=== PATIENT | male | born 2000 | race Asian ===

== ENCOUNTER 2019-03-17 08:44 | Emergency (ER) | payer OTHER ==
[2019-03-17 08:49] VITALS: BP 142/92
--- NOTE | 2019-03-17 08:58 | EDPHY ---
H & P Time Seen by Provider: 03/17/19 08:48 HPI/ROS: HPI Mandibular dislocation. 18-year-old male by private vehicle. He was sent from the [facility]. He yawned this morning and dislocated his right temporal mandibular joint. He has done this in the past. He is usually able to self reduce this dislocation. He was unable to self reduce it. He was seen at the [facility] and they referred him here for treatment. He denies any other injury or complaint. No difficulty breathing. He has been able to swallow his secretions without issue as well. ROS: Constitutional: No fever, no chills. No weakness. ENT: As above. Musculoskeletal: No neck pain. As above. Neurological: No headache. No focal weakness or altered sensation. Past medical history: As above. Otherwise healthy. Social history: Student [employer]. No alcohol. Nonsmoker. Physical Exam: General Appearance: Alert, no distress. This patient is responding to questions appropriately and in full sentences. This patient appears well- hydrated and well-nourished. Eyes: Pupils equal and round no pallor or injection. No lid edema, erythema or injection. ENT, Mouth: Mucous membranes are moist. The pharyngeal tissues are unremarkable. No edema or swelling. No asymmetry suggestive of abscess. No erythema or exudates. Mandible is stuck in the open position. Handling secretions well. No airway issues. Right anterior inferior temporal mandibular joint dislocation deformity noted. Neurological: Motor sensory function is grossly intact. Cranial nerves are normal. Gait is normal. Skin: Warm and dry, no rashes. Musculoskeletal: Neck is supple and nontender. Extremities are symmetrical. All joints range without pain or impingement. Psychiatric: No agitation. No depression. Database: EKG: Imaging: Procedures: Procedure: Dislocation reduction of the right temporomandibular joint. The right temporomandibular joint was reduced in the usual fashion without complications. Post reduction the patient's neurovascular exam is normal. The procedure was performed by myself. Emergency department course: Triage vital signs reviewed. He was mildly tachycardic. This resolved after reduction as noted above. He has no complaints. He feels completely comfortable. He is able to open and close his jaw without any difficulty. Speech is normal. He feels comfortable going home and I feel he is safe for discharge. Follow-up and return to emergency department precautions reviewed with him. All of his questions were answered. He was discharged from the emergency department in good condition. Differential Diagnosis: The differential diagnosis on this patient includes but is not limited to right temporomandibular joint dislocation. Fracture unlikely. This represents a partial list of diagnoses considered. These considerations are based on history , physical exam, past history, reassessment and diagnostic testing. Smoking Status: Never smoked Constitutional: Initial Vital Signs Temperature (C) 37 C 03/17/19 08:46 Heart Rate 109 H 03/17/19 08:46 Respiratory Rate 16 03/17/19 08:46 Blood Pressure 142/92 H 03/17/19 08:46 O2 Sat (%) 98 03/17/19 08:46 O2 Delivery Mode Room Air Allergies/Adverse Reactions: No Known Allergies Allergy (Unverified 03/17/19 08:46) Home Medications: Medication Instructions Recorded NK [No Known Home Meds] 03/17/19 Departure - Departure Disposition: Home, Routine, Self-Care Clinical Impression: Temporomandibular joint dislocation Condition: Good Instructions: Mandibular Dislocation (ED) Additional Instructions: Read and follow provided instructions. Follow-up with your primary care physician in 1-2 days for re-evaluation as needed. Ibuprofen dosin mg every 6 hours with meals for the next 3 days only. Take only as needed for pain. Return to the emergency department for worsening pain or other serious concerns. Referrals: NONE *PRIMARY CARE P,. [Primary Care Provider] - As per Instructions
== END 2019-03-17 09:04 | disposition home or self-care (01) ==
PROC: 0RSCXZZ Reposition Right Temporomandibular Joint, External Approach (ICD-10-PCS; principal; 2019-03-17)
DX: S03.01XA Dislocation of jaw, right side, initial encounter (principal)